=== PATIENT | female | born 1955 | race Asian ===

== ENCOUNTER 2024-07-14 05:54 | Inpatient (IN) | payer MEDICARE, MEDICAID ==
[~2024-07-14] VITALS: Ht 182.9 cm; Wt 68.0 kg
[2024-07-14] MEDS: SODIUM CHLORIDE 0.9% (SEPSIS BOLUS) IV ONE (06:26)
[2024-07-14] MEDS ORDERED: VANCOMYCIN 1000MG/250ML 250 ML IV SCH (06:30)
[2024-07-14] MEDS: AMPICILLIN SOD/SULBACTAM NA 3 G in SODIUM CHLORIDE 0.9% 100 ML IV SCH (07:12)
[2024-07-14 07:13] LABS: INR 1.1; PROTHROMBIN TIME 11.4 sec (9.6-11.0)
[2024-07-14 07:15] LABS: BASOPHILS % 0.5 % (0.0-2.0); EOSINOPHILS % 3.3 % (0.0-5.0); HEMATOCRIT. 31.2 % (36.0-48.0); HEMOGLOBIN. 10.3 g/dL (12.0-16.0); LYMPHOCYTES % 22.2 % (20.0-50.0); MEAN CORPUSCULAR HEMOGLOBIN 29.4 pg (28.0-32.0); MEAN CORPUSCULAR HGB CONC 32.9 g/dL (31.0-37.0); MEAN CORPUSCULAR VOLUME 89.4 fL (81.0-99.0); MEAN PLATELET VOLUME 7.2 fl (7.4-10.4); MONOCYTES % 10.7 % (2.0-8.0); NEUTROPHILS % 63.3 % (40.0-76.0); PLATELET 441 x1000/uL (130-400); RED BLOOD CELL COUNT 3.49 mill/uL (4.2-5.4); RED CELL DISTRIBUTION WIDTH 14.4 % (11.6-14.6); WHITE BLOOD COUNT 9.7 x1000/uL (4.5-11.0)
[2024-07-14 07:16] LABS: CHLORIDE 106 mEq/L (98-107); POTASSIUM 3.5 mEq/L (3.5-5.1); SODIUM 139 mEq/L (136-145)
[2024-07-14 07:17] LABS: CALCIUM 8.5 mg/dL (8.7-10.4); CARBON DIOXIDE 25 mEq/L (21-32)
[2024-07-14 07:22] LABS: CREATININE 0.5 mg/dL (0.6-1.0); GLUCOSE 94 mg/dL (70-105); UREA NITROGEN BLOOD 12 mg/dL (9-23)
[2024-07-14] MEDS: VANCOMYCIN 1G PREMIX 200 ML IV SCH (07:31)
[2024-07-14 08:04] LABS: CLARITY URINE CLEAR (CLEAR); COLOR URINE YELLOW (YELLOW); GLUCOSE URINE NEGATIVE (NEGATIVE); KETONES URINE NEGATIVE (NEGATIVE); LEUKOCYTE ESTERASE URINE TRACE (NEGATIVE); NITRITE URINE POSITIVE (NEGATIVE); OCCULT BLOOD URINE NEGATIVE (NEGATIVE); PROTEIN URINE NEGATIVE (NEGATIVE); SPECIFIC GRAVITY URINE 1.011 (1.005-1.030); UROBILINOGEN URINE 0.2 E.U./dL (0.2-1.0)
[2024-07-14 08:27] LABS: BACTERIA URINE 1+; RBC URINE NONE SEEN /hpf (0-2); WBC URINE 0-2 /hpf (0-2); YEAST URINE NONE SEEN
[2024-07-14 08:29] LABS: SQUAMOUS EPITHELIAL CELL URINE FEW /lpf (RARE/1+)
[2024-07-14] MEDS ORDERED: ONDANSETRON HCL 4MG/2ML INJ IV PRN (10:30)
[2024-07-14] MEDS: ENOXAPARIN 30MG/0.3ML SYR SUBCUT SCH (11:00)
[2024-07-14] MEDS: CEFTRIAXONE 1GM/50ML 50 ML IV SCH (11:01)
[2024-07-14] MEDS: LORAZEPAM 2MG/ML INJ IV NR (12:05)
[2024-07-14 14:36] VITALS: BP 114/52; PULSE 98; RESP 18; TEMP 36.7
[2024-07-14 16:00] VITALS: BP 101/67; PULSE 87; RESP 18; TEMP 36.5; O2SAT 97
[2024-07-14 20:00] VITALS: BP 109/58; PULSE 87; RESP 18; TEMP 37.9; O2SAT 96
[2024-07-15] VITALS: BP 119/62; PULSE 90; RESP 18; TEMP 37.1; O2SAT 97
[2024-07-15] MEDS: ACETAMINOPHEN 325MG TABLET PO PRN (00:40)
[2024-07-15 04:00] VITALS: BP 110/60; PULSE 86; RESP 18; TEMP 37.2; O2SAT 96
[2024-07-15 07:34] LABS: BASOPHILS % 0.7 % (0.0-2.0); EOSINOPHILS % 3.7 % (0.0-5.0); HEMATOCRIT. 32.1 % (36.0-48.0); HEMOGLOBIN. 10.6 g/dL (12.0-16.0); LYMPHOCYTES % 22.7 % (20.0-50.0); MEAN CORPUSCULAR HEMOGLOBIN 29.4 pg (28.0-32.0); MEAN CORPUSCULAR HGB CONC 33.1 g/dL (31.0-37.0); MEAN CORPUSCULAR VOLUME 88.7 fL (81.0-99.0); MEAN PLATELET VOLUME 7.4 fl (7.4-10.4); MONOCYTES % 11.3 % (2.0-8.0); NEUTROPHILS % 61.6 % (40.0-76.0); PLATELET 479 x1000/uL (130-400); RED BLOOD CELL COUNT 3.62 mill/uL (4.2-5.4); RED CELL DISTRIBUTION WIDTH 14.3 % (11.6-14.6)
[2024-07-15 07:37] LABS: CHLORIDE 106 mEq/L (98-107); POTASSIUM 3.4 mEq/L (3.5-5.1); SODIUM 138 mEq/L (136-145)
[2024-07-15 07:38] LABS: CALCIUM 8.7 mg/dL (8.7-10.4); CARBON DIOXIDE 25 mEq/L (21-32)
[2024-07-15 07:43] LABS: CREATININE 0.5 mg/dL (0.6-1.0); GLUCOSE 94 mg/dL (70-105); UREA NITROGEN BLOOD 7 mg/dL (9-23)
[2024-07-15 08:00] VITALS: BP 115/58; PULSE 77; RESP 18; TEMP 37.3; O2SAT 96
[2024-07-15 12:00] VITALS: BP 114/47; PULSE 79; RESP 19; TEMP 37; O2SAT 97
[2024-07-15 16:00] VITALS: BP 114/47; PULSE 79; RESP 19; TEMP 37; O2SAT 97
[2024-07-15] MEDS: POTASSIUM CHLORIDE 20MEQ TABLET SR PO NR (17:10)
[2024-07-15 20:00] VITALS: BP 123/49; PULSE 77; RESP 18; TEMP 36.3; O2SAT 98
[2024-07-16] VITALS: BP 125/65; PULSE 79; RESP 16; TEMP 37.2; O2SAT 100
[2024-07-16 04:00] VITALS: BP 118/70; PULSE 87; RESP 19; TEMP 36.2; O2SAT 98
[2024-07-16] MEDS ORDERED: HYDROCODONE/ACETAMINOPHEN 5/325MG TABLET PO PRN (07:00)
[2024-07-16 08:00] VITALS: BP 117/74; PULSE 83; RESP 19; TEMP 36.7; O2SAT 95
[2024-07-16] MEDS: CEFTRIAXONE 1GM/50ML 50 ML IV SCH (11:17)
[2024-07-16 12:00] VITALS: BP 100/54; PULSE 78; RESP 19; TEMP 36.6; O2SAT 95
[2024-07-16] MEDS: ACETAMINOPHEN 325MG TABLET PO PRN (12:59)
[2024-07-16 16:00] VITALS: BP 118/70; PULSE 79; RESP 19; TEMP 36.6; O2SAT 96
[2024-07-16 20:00] VITALS: BP 101/51; PULSE 83; RESP 19; TEMP 36.3; O2SAT 98
[2024-07-17] VITALS: BP 96/55; PULSE 89; RESP 17; TEMP 36.5; O2SAT 97
[2024-07-17 04:00] VITALS: BP 96/63; PULSE 75; RESP 20; TEMP 37; O2SAT 98
[2024-07-17 08:00] VITALS: BP 109/62; PULSE 81; RESP 19; TEMP 36.7; O2SAT 98
[2024-07-17 12:00] VITALS: BP 110/60; PULSE 83; RESP 19; TEMP 36.7; O2SAT 93
[2024-07-17 12:23] VITALS: BP 110/60; PULSE 83; TEMP 98; O2SAT 93
== END 2024-07-17 14:25 | DRG 689 ==
LOC: ER 06:05 → 6EST 08:27
PROVIDERS: ADMIT Internal Medicine; ATTEND Internal Medicine
DX: N39.0 Urinary tract infection, site not specified (principal); G93.41 Metabolic encephalopathy; L03.115 Cellulitis of right lower limb; Z59.00 Homelessness unspecified; E87.6 Hypokalemia; D64.9 Anemia, unspecified; F17.200 Nicotine dependence, unspecified, uncomplicated; B96.20 Unspecified Escherichia coli [E. coli] as the cause of diseases classified elsewhere; F20.9 Schizophrenia, unspecified
CPT/HCPCS: 36415; 71045; 73590; 80048; 81003; 83605; 84145; 85025; 87077; 87186; 93005; 93970; 97166; 99291; J0295; J0696; J1650; J2060; J3370; J7030; J7050